=== PATIENT | female | born 1945 | race Caucasian/White ===

== ENCOUNTER 2018-04-16 08:15 | Day surgery (SDC) | payer MEDICARE ==
[~2018-04-16] VITALS: Ht 172.7 cm; Wt 70.8 kg
[~2018-04-16 08:15] MED LIST: ABAC300; AMLO10 PO; CALCAVITD PO; Dyazide 37.5-21 EACH PO; HYDACE5 PO; LISHYD2025 PO; LISI20 PO; OMEG1CAP30 PO; POTCHL20ER PO; VITAMIN D5000 UNIT PO; WHEELCHAIR USE
--- NOTE | 2018-04-16 08:39 | NUR ---
History, Chart, Medications and Allergies reviewed before start of procedure. Patient States Post-Procedure ride home has been arranged.
--- NOTE | 2018-04-16 09:15 | NUR ---
04/16/18 0915 Manuel Buchanan PATIENT DETERMINED TO BE ASA APPROPRIATE FOR PROPOFOL SEDATION PRIOR TO START OF PROCEDURE BY . 3-LEAD EKG REVIEWED WITH PHYSICIAN PRIOR TO START OF PROCEDURE.PATIENT CONFIRMS NPO STATUS AND AGREES WITH SCHEDULED PROCEDURE.History, Chart, Medications and Allergies reviewed before start of procedure.MONITOR INTACT WITH CONTINUOUS PULSE OXIMETRY AND INTERMITTENT BP.O2 VIA N/C INTACT THROUGHOUT SEDATION/PROCEDURE.HURRICAINE SPRAY TO OROPHARYX.Bite Block Placed
--- NOTE | 2018-04-16 09:48 | NUR ---
PT TO STEP. DENIES PAIN AT PRESENT.
--- NOTE | 2018-04-16 10:15 | NUR ---
WRITTEN AND VERVBAL D/C INSTRUCTIONS GIVEN TO PT AND WITH STATED UNDERSTANDING.
== END 2018-04-16 22:45 | disposition home or self-care (01) ==
LOC: ORSCMMR 08:15 → ORD 09:30 → ORSCMMR 09:30
PROVIDERS: Internal Medicine Gastroenterology
PROC: 0DB58ZX Excision of Esophagus, Via Natural or Artificial Opening Endoscopic, Diagnostic (ICD-10-PCS; principal; 2018-04-16 09:30)
PROC: 0D758ZZ Dilation of Esophagus, Via Natural or Artificial Opening Endoscopic (ICD-10-PCS; principal; 2018-04-16 09:30)
DX: R13.14 Dysphagia, pharyngoesophageal phase (principal); R93.5 Abnormal findings on diagnostic imaging of other abdominal regions, including retroperitoneum; K21.0 Gastro-esophageal reflux disease with esophagitis; K22.2 Esophageal obstruction; K25.9 Gastric ulcer, unspecified as acute or chronic, without hemorrhage or perforation; I10 Essential (primary) hypertension; Z87.891 Personal history of nicotine dependence; Z79.899 Other long term (current) drug therapy
CPT/HCPCS: 88305; 88342; C1726; J7120